=== PATIENT | male | born 1995 | race African-American/Black ===

== ENCOUNTER 2017-03-04 21:26 | Emergency (ER) | payer MEDICAID ==
[~2017-03-04] VITALS: Ht 180.3 cm; Wt 134.5 kg
[2017-03-04 21:27] VITALS: BP 142/78; PULSE 88; RESP 16; TEMP 98.2; O2SAT 98
[2017-03-04] MEDS ORDERED: LIDOCAINE 2%/EPINEPHrine 1:100,000 20ML MDV NERV BLOCK ONE (23:00)
--- NOTE | 2017-03-04 23:06 | PD ---
HPI Chief Complaint: Skin Problem Time Seen by Provider: 22:34 Travel History International Travel<30 days: No Contact w/Intl Traveler<30days: No Traveled to known affect area: No History of Present Illness HPI Patient reports a bump on his rectum that he said popped while in er exam room while awaiting to be seen, it was painful and hurts lump localized pain to his rectum left side. . On initial inspection I see that he has blood in his rectal area and I see a thrombosed hemorrhoid in one of his external hemorrhoids. PFSH Social History Tobacco Use: No Allergies-Medications (Allergen,Severity, Reaction): Coded Allergies: No Known Allergies (Unverified , 03/04/17) Reported Meds & Prescriptions Reported Meds & Active Scripts Active Ibuprofen 800 Mg Tab 800 Mg PO Q8H PRN Amoxicillin 875 Mg Tab 875 Mg PO BID Preparation H Cooling Gel (Phenylephrine HCl/Witch Marissa) 0.25 %-50 % Gel..gram. 1 Appl RECTAL 4 TIMES A DAY Lidocaine Viscous 2% Liq 2 % Liq 5 Ml RECTAL 4 TIMES A DAY Review of Systems Except as stated in HPI: all other systems reviewed are Neg Gastrointestinal: Positive: Other (rectal pain with bleeding) Physical Exam Narrative GENERAL: non toxic appearance SKIN: Warm and dry. hemorrhoid HEAD: Atraumatic. Normocephalic. EYES: Pupils equal and round. No scleral icterus. No injection or drainage. ENT: No nasal bleeding or discharge. Mucous membranes pink and moist. NECK: Trachea midline. No JVD. CARDIOVASCULAR: Regular rate and rhythm. RESPIRATORY: No accessory muscle use. Clear to auscultation. Breath sounds equal bilaterally. GASTROINTESTINAL: Abdomen soft, non-tender, nondistended. Hepatic and splenic margins not palpable. MUSCULOSKELETAL: Extremities without clubbing, cyanosis, or edema. No obvious deformities. NEUROLOGICAL: Awake and alert. No obvious cranial nerve deficits. Motor grossly within normal limits. Five out of 5 muscle strength in the arms and legs. Normal speech. PSYCHIATRIC: Appropriate mood and affect; insight and judgment normal. GI RECTAL :Rectum has blood around the rectal vault and then on the external rectum I see what appears to be a thrombosed hemorrhoid painful to touch Data Data Last Documented VS Vital Signs Date Time Temp Pulse Resp B/P (MAP) Pulse Ox O2 Delivery O2 Flow Rate FiO2 03/05/17 00:27 03/04/17 21:27 98.2 88 16 98 Room Air Orders Orders Lidocai-Epi 2%-1:100,000 Inj (Xylocaine- (03/04/17 23:00) Lidocaine 2% Jelly (Xylocaine 2% Jelly) (03/04/17 23:30) Ed Discharge Order (03/05/17 00:42) MDM Medical Decision Making Medical Screen Exam Complete: Yes Emergency Medical Condition: Yes Differential Diagnosis Hemorrhoid thrombosis Narrative Course We did a thrombectomy on his hemorrhoid I injected 2% with epi into the hemorrhoid and removed with a forceps a clot impacted then changed lidocaine jelly and discharged follow-up as an outpatient Procedures Procedure Narrative Thrombectomy from the hemorrhoid 2% with epi injected less than 1 cc forceps pain hemorrhoid and removed a clot impacted Diagnosis Primary Impression: Thrombosed hemorrhoids Patient Instructions: General Instructions, Hemorrhoidectomy (GEN), Hemorrhoids (ED) Scripts Phenylephrine HCl/Witch Marissa (Preparation H Cooling Gel) 0.25 %-50 % Gel..gram. 1 APPL RECTAL 4 times a day, #30 GM Prov: Trev Lozano MD 03/05/17 Lidocaine Viscous 2% Liq (Lidocaine Viscous 2% Liq) 2 % Liq 5 ML RECTAL 4 times a day, #100 ML Prov: Trev Lozano MD 03/05/17 Disposition: 01 DISCHARGE HOME Condition: Good Trev Lozano MD Mar 04, 2017 23:06
[2017-03-04] MEDS ORDERED: LIDOCAINE 2% JELLY 30 ML TUBE TOPICAL ONE (23:30)
[2017-03-05] MEDS ORDERED: LIDO2SOL11 RECTAL (00:31)
[2017-03-05] MEDS ORDERED: PREPGEL RECTAL (00:33)
== END 2017-03-05 00:27 | disposition home or self-care (01) ==
LOC: NEPE 21:26
DX: K64.5 Perianal venous thrombosis (principal); K62.5 Hemorrhage of anus and rectum
CPT/HCPCS: 10060; 46083

== ENCOUNTER 2017-03-07 17:07 | Emergency (ER) | payer MEDICAID ==
[~2017-03-07] VITALS: Ht 177.8 cm; Wt 135.0 kg
[~2017-03-07 17:07] MED LIST: LIDO2SOL11 RECTAL; PREPGEL RECTAL
[2017-03-07 17:10] VITALS: BP 137/77; PULSE 98; RESP 20; TEMP 100.2; O2SAT 97
[2017-03-07] MEDS ORDERED: AMOXICILLIN 875 MG TAB PO ONE (17:45)
[2017-03-07] MEDS ORDERED: IBUPROFEN 800 MG TAB PO ONE (17:45)
[2017-03-07] MEDS ORDERED: IBUP1TAB7 PO (18:20)
[2017-03-07] MEDS ORDERED: AMOX875T PO (18:20)
--- NOTE | 2017-03-07 18:24 | PD ---
HPI Chief Complaint: ENT Complaint Time Seen by Provider: 17:29 Travel History International Travel<30 days: No Contact w/Intl Traveler<30days: No Traveled to known affect area: No History of Present Illness HPI 21-year-old male presents to the verge department with sudden onset severe sore throat over the last 2 days with low-grade fevers. Patient states pain radiates to both ears. He he states pain with swallowing but he is able to swallow his spit and fluids. He denies significant headache or nausea or vomiting or chest pain or cough. He has no known drug allergies. PFSH Social History Alcohol Use: No Tobacco Use: No Substance Use: No Allergies-Medications (Allergen,Severity, Reaction): Coded Allergies: No Known Allergies (Unverified , 03/04/17) Reported Meds & Prescriptions Reported Meds & Active Scripts Active Ibuprofen 800 Mg Tab 800 Mg PO Q8H PRN Amoxicillin 875 Mg Tab 875 Mg PO BID Preparation H Cooling Gel (Phenylephrine HCl/Witch Marissa) 0.25 %-50 % Gel..gram. 1 Appl RECTAL 4 TIMES A DAY Lidocaine Viscous 2% Liq 2 % Liq 5 Ml RECTAL 4 TIMES A DAY Review of Systems Except as stated in HPI: all other systems reviewed are Neg General / Constitutional: Positive: Fever, Chills Eyes: No: Visual changes HENT: Positive: Sore Throat (severe), Rhinitis, No: Headaches, Vertigo, Lightheadedness, Rhinorrhea, Congestion, Nosebleed, Neck Stiffness, Neck Pain, Dental Difficulties, Earache Cardiovascular: No: Chest Pain or Discomfort Respiratory: No: Cough, Shortness of Breath Gastrointestinal: No: Nausea, Vomiting, Diarrhea, Abdominal Pain Genitourinary: No: Dysuria Musculoskeletal: No: Pain Skin: No Rash Neurologic: No: Weakness Psychiatric: No: Depression Endocrine: No: Polydipsia Hematologic/Lymphatic: No: Easy Bruising Physical Exam Narrative GENERAL: Patient appears in mild to moderate distress. SKIN: Warm and dry. Normal color. Normal turgor. No rash. HEAD: Atraumatic. Normocephalic. EYES: Pupils equal and round. No scleral icterus. No injection or drainage. ENT: No nasal bleeding or discharge. Mucous membranes pink and moist. TMs are somewhat dull bilaterally. No injection. Posterior pharynx has bilateral lymphangitis with beefy red tonsils lesions noted on the soft palate suggestive of acute strep pharyngitis. He was midline. No sinus tenderness to palpation or percussion. NECK: Trachea midline. Supple with mild to moderate bilateral anterior lymphadenopathy. CARDIOVASCULAR: Regular rate and rhythm. RESPIRATORY: No accessory muscle use. Clear to auscultation. Breath sounds equal bilaterally. GASTROINTESTINAL: Abdomen soft, non-tender, nondistended. Hepatic and splenic margins not palpable. MUSCULOSKELETAL: Extremities without clubbing, cyanosis, or edema. No obvious deformities. NEUROLOGICAL: Awake and alert. No obvious cranial nerve deficits. Motor grossly within normal limits. Five out of 5 muscle strength in the arms and legs. Normal speech. PSYCHIATRIC: Appropriate mood and affect; insight and judgment normal. Data Data Last Documented VS Vital Signs Date Time Temp Pulse Resp B/P (MAP) Pulse Ox O2 Delivery O2 Flow Rate FiO2 03/07/17 18:28 03/07/17 17:36 16 03/07/17 17:10 100.2 98 97 Orders Orders Amoxicillin (Trimox) (03/07/17 17:45) Ibuprofen (Motrin) (03/07/17 17:45) Ed Discharge Order (03/07/17 18:24) [facility] Medical Decision Making Medical Screen Exam Complete: Yes Emergency Medical Condition: Yes Differential Diagnosis Pharyngitis. Febrile illness. Strep pharyngitis. Narrative Course Patient is felt to have strep pharyngitis based on his clinical history and physical. Patient is given amoxicillin 875 mg by mouth now. Patient is able to take ibuprofen 800 mg by mouth now. Patient will be continued on amoxicillin 875 twice a day 10 days. Patient also given ibuprofen 800 mg 3 times daily with food #30. Patient is to use ice chips, Tylenol, and push fluids for the next several days. Note is given for school for the next 2 days. Patient follow up if symptoms are worsening as discussed. Diagnosis Primary Impression: Acute pneumococcal pharyngitis Referrals: Primary Care Physician Patient Instructions: General Instructions, Strep Throat (DC) Departure Forms: School Release Return to School Date: Mar 10, 2017 Additional Instructions: Patient is felt to have strep pharyngitis based on his clinical history and physical. Patient is given amoxicillin 875 mg by mouth now. Patient is able to take ibuprofen 800 mg by mouth now. Patient will be continued on amoxicillin 875 twice a day 10 days. Patient also given ibuprofen 800 mg 3 times daily with food #30. Patient is to use ice chips, Tylenol, and push fluids for the next several days. Note is given for school for the next 2 days. Patient follow up if symptoms are worsening as discussed. Med/Other Pt SpecificInfo: Prescription(s) given Scripts Ibuprofen (Ibuprofen) 800 Mg Tab 800 MG PO Q8H Y for Pain/Inflammation, #30 TAB 0 Refills Prov: Geremias Fuller MD 03/07/17 Amoxicillin (Amoxicillin) 875 Mg Tab 875 MG PO BID for Infection, #20 TAB 0 Refills Prov: Geremias Fuller MD 03/07/17 Disposition: 01 DISCHARGE HOME Condition: Stable Andrés Garcia Mar 07, 2017 18:24
== END 2017-03-07 18:30 | disposition home or self-care (01) ==
LOC: NEPD 17:07
DX: J02.8 Acute pharyngitis due to other specified organisms (principal); B95.3 Streptococcus pneumoniae as the cause of diseases classified elsewhere; Z88.6 Allergy status to analgesic agent; Z88.0 Allergy status to penicillin
CPT/HCPCS: 99284